=== PATIENT | female | born 1990 | race Caucasian/White ===

== ENCOUNTER 2021-01-10 02:30 | Outpatient (CLI) | payer MEDICAID, SELFPAY ==
[2021-01-10 12:10] LABS: Abs Immature Grans 0.03 10^3/uL (0.0-0.06); Absolute Basophil Count 0.04 10^3/uL (0.0-0.2); Absolute Eosinophil Count 0.13 10^3/uL (0.0-0.7); Absolute Lymphocyte Count 1.84 10^3/uL (1.2-3.4); Absolute Monocyte Count 0.52 10^3/uL (0.1-0.8); Absolute Neutrophil Count 4.76 10^3/uL (1.2-6.7); Basophils % 0.5; Eosinophils % 1.8; HCT 34.7 % (36.0-46.0); Immature Grans % 0.4; Lymphocytes % 25.1; MCH 29.4 pg (27.0-33.0); MCHC 34.6 % (32.0-36.0); MPV 9.4 fL (8.0-11.0); Monocytes % 7.1; Neutrophils % 65.1; Nucleated RBC 0 %; Platelet Count 243 10^3/uL (130-400); RBC 4.08 10^6/uL (3.93-5.22); RDW 11.9 % (11.7-14.6); RDW-SD 36.8 fL; WBC 7.32 10^3/uL (4.4-10.8)
[2021-01-10 12:24] LABS: Glucose,1 Hr (Glucola) 125 mg/dL (80-140)
[2021-01-10 12:37] LABS: Kit/Specimen SENT
[2021-01-10 12:43] LABS: *AMPHETAMINES SCREEN URINE Negative (Negative); *BARBITURATES SCREEN URINE Negative (Negative); *BENZODIAZEPINES SCREEN URINE Negative (Negative); Cannabinoids THC Negative (Negative); Cocaine Screen,Urine Negative (Negative); METHADONE URINE SCREEN Negative (Negative); OPIATES URINE SCREEN Negative (Negative)
[2021-01-10 12:44] LABS: Tricyclic Antidepressants Negative (Negative)
[2021-01-10 13:13] LABS: TSH (W/Ref FT4) 1.07 uIU/mL (0.36-3.74)
[2021-01-13 10:01] LABS: Hepatitis B Surface Ag Negative (Negative)
[2021-01-13 10:35] LABS: HIV-1/2 Ag & Ab Screen Negative (Negative)
[2021-01-13 10:40] LABS: Hepatitis C Ab w Rflx HCV PCR Negative (Negative)
[2021-01-13 11:47] LABS: Varicella IgG Antibody Positive (See Note)
[2021-01-13 11:53] LABS: Rubella IgG Ab (UVM) Positive (See Note)
[2021-01-13 14:12] LABS: Syphilis Total Ab w/Reflex Nonreactive (Nonreactive)
[2021-01-13 14:59] LABS: Chlamydia Result Negative (Negative); GC Result Negative (Negative)
[2021-01-18 10:38] LABS: Buprenorphine Negative ng/mL (Cutoff: 5.0); Norbuprenorphine Negative ng/mL (Cutoff: 2.5)
== END 2021-01-10 02:31 | disposition home or self-care (01) ==
LOC: LBO 02:30
PROVIDERS: Advanced Practice Midwife; PCP Registered Nurse; Visit Provider Advanced Practice Midwife
DX: Z34.91 Encounter for supervision of normal pregnancy, unspecified, first trimester (principal); R00.2 Palpitations; Z11.3 Encounter for screening for infections with a predominantly sexual mode of transmission; Z11.4 Encounter for screening for human immunodeficiency virus [HIV]; Z11.59 Encounter for screening for other viral diseases; Z01.84 Encounter for antibody response examination; Z3A.11 11 weeks gestation of pregnancy
CPT/HCPCS: 80307; 82950; 86787; 86803; 86850; 86900; 86901; 87340; 87389; 87491; 87591; 84443; 85025; 86762; 86780; 87086; 87480; 87510; 87660

== ENCOUNTER 2021-03-11 01:35 | Outpatient (CLI) | payer MEDICAID, SELFPAY ==
--- NOTE | 2021-03-11 06:30 | DI.US_ITS ---
Exam(s) US OB 2-3 TRIMESTER W MOD EXAM: US OB 2-3 TRIMESTER W MOD CLINICAL HISTORY: anatomy,z34.90. TECHNIQUE: Transabdominal obstetrical ultrasound performed. COMPARISON: No exams were available for comparison FINDINGS: Transabdominal obstetrical ultrasound performed. FINDINGS: Number of fetuses: One. position: Varied throughout the examination. heart rate: 144 bpm. Placental location: Posterior and fundal. There is a grade 0 placenta. No evidence of previa. Amniotic fluid index: Amount of fluid is within normal limits. ANATOMICAL SURVEY: Within normal limits. The right ventricular outflow tract could not be image d on this examination due to the lie of the fetus. The patient is scheduled to return on 03/18/2021 to document the right ventricular outflow tract. BIOMETRIC DATA: BPD: 4.6cm consistent with 19 weeks 6 days. HC: 17.8cm consistent with 20 weeks 2 days. AC: 16.2cm consistent with 21 weeks 2 days. FL: 3.3cm consistent with 20 weeks 1 day. Cisterna Magna: 5 mm Cerebellum: 2.1 cm EFW: 371 grms 88% Composite Age: 20 weeks 3 days EDC by US: 07/26/2021 Heart Rate: 144BPM IMPRESSION: 1. Single live intrauterine gestation as above. 2. The right ventricular outflow tract could not be imaged on the current examination due to the lie of the fetus. The patient is scheduled to return on 03/18/2021 to document the right ventricular out flow tract. The anatomic evaluation was otherwise unremarkable. DATA REPOSITORY:
== END 2021-03-11 01:55 ==
PROVIDERS: PCP Registered Nurse; Visit Provider Advanced Practice Midwife
DX: Z34.92 Encounter for supervision of normal pregnancy, unspecified, second trimester (principal); Z3A.20 20 weeks gestation of pregnancy
CPT/HCPCS: 76805

== ENCOUNTER 2021-03-18 00:39 | Outpatient (CLI) | payer MEDICAID, SELFPAY ==
--- NOTE | 2021-03-18 | DI.US_ITS ---
Exam(s) US OB F/U FACIAL/LVOT/RVOT EXAM: US OB F/U FACIAL/LVOT/RVOT CLINICAL HISTORY: F/U RVOT TO COMPLETE SURVEY. COMPARISON: US US OB 2-3 TRIMESTER W MOD from 03/11/2021 US US OB 2-3 TRIMESTER W MOD from 03/11/2021 TECHNIQUE: Transabdominal obstetrical ultrasound performed. FINDINGS: Patient returned for better visualization of the right ventricular outflow tract is not well seen on the prior exam. Sonographic images demonstrate a single intrauterine gestation in variable position. Placenta: Posterior grade 1 Predicted gestational age: 20 weeks 6 days Estimated date of delivery 30 July 2021: heart rate motion is Dopplered at: 141 BPM. Amniotic fluid: Amount of fluid is within normal limits. Right ventricular outflow tract was identified on the examination. IMPRESSION: Right ventricular outflow tract was visualized. DATA REPOSITORY:
== END 2021-03-18 00:59 ==
PROVIDERS: PCP Registered Nurse; Visit Provider Advanced Practice Midwife
DX: Z34.92 Encounter for supervision of normal pregnancy, unspecified, second trimester (principal)
CPT/HCPCS: 76815

== ENCOUNTER 2021-04-15 08:45 | Outpatient (CLI) | payer OTHER, MEDICAID, SELFPAY ==
--- NOTE | 2021-04-15 08:45 | RT.EKG_ITS ---
APPROVED REPORT Exam: Resting ECG Reason for Exam: palpitations Patient Location: O HR:82 bpm ECG Measurements Heart Rate 82 AXIS [place] 133 P 17 QRSd 89 QRS 17 QT 359 T 4 QTc 420 Conclusion Sinus rhythm...normal P axis, V-rate 50- 99 Low voltage, precordial leads...precordial leads <1.0mV Otherwise normal
== END 2021-04-15 08:46 | disposition home or self-care (01) ==
LOC: DI.CARD 08:47
PROVIDERS: PCP Registered Nurse; Visit Provider Internal Medicine Cardiovascular Disease
DX: R00.2 Palpitations (principal)
CPT/HCPCS: 93010

== ENCOUNTER 2021-05-15 03:28 | Outpatient (CLI) | payer MEDICAID, SELFPAY ==
[2021-05-15 10:59] LABS: HCT 33.9 % (36.0-46.0); MCH 28.9 pg (27.0-33.0); MCHC 32.4 % (32.0-36.0); MCV 89.2 fL (80-95); MPV 9.1 fL (8.0-11.0); Platelet Count 210 10^3/uL (130-400); RDW 12.8 % (11.7-14.6); WBC 11.09 10^3/uL (4.4-10.8)
[2021-05-15 11:08] LABS: Glucose,1 Hr (Glucola) 175 mg/dL (80-140)
== END 2021-05-15 03:29 | disposition home or self-care (01) ==
LOC: LBO 03:29
PROVIDERS: Advanced Practice Midwife; PCP Registered Nurse; Visit Provider Advanced Practice Midwife
DX: Z34.93 Encounter for supervision of normal pregnancy, unspecified, third trimester (principal); Z3A.29 29 weeks gestation of pregnancy
CPT/HCPCS: 36415; 82950; 85027

== ENCOUNTER 2021-06-10 02:28 | Outpatient (CLI) | payer OTHER, MEDICAID, SELFPAY ==
[2021-06-10 09:26] LABS: Glucose 1 Hour 162 mg/dL
[2021-06-10 11:12] LABS: Glucose 3 Hour 136 mg/dL
--- NOTE | 2021-06-17 09:25 | W.ANESCON ---
General Date of Service Date of Service: 06/17/21 Reason for Consult Requesting Provider: Aimee Orellana How Consult Conducted:: Chart Review Reason for Consult:: TOLAC Consult Recommendation after Review:: Chart reviewed, cardiac note reviewed with no further concerns, recent COVID+ treated with MAB on 05/31/21. Previous was an induction with resultant c section due to arrest of descent. OK to proceed with TOLAC at [facility]. Meds Allergies and Home Medications Allergies Allergy/AdvReac Type Severity Reaction Status Date / Time grass pollen-perennial rye, Allergy Intermediate wheezing, Verified 05/15/21 10:02 standar sneezing, runny nose cat dander Allergy Mild runny Verified 05/15/21 10:02 nose, itchy eyes mold Allergy Mild sneezing, Verified 05/15/21 10:02 stuffy nose ondansetron AdvReac Severe severe Verified 05/15/21 10:02 headache Home Medication Medication Instructions Recorded albuterol sulfate 90 mcg/actuation 2 puff INHALATION Q6H PRN 12/23/20 aerosol inhaler prenat.vits,jody,plb-rzqz-dmoew 1 tab PO DAILY 12/23/20 PFS Active Problems Active Problems: Problem Status Onset Code Elevated glucose R73.09 Size of fetus inconsistent with dates in third trimester O26.843 Fatigue R53.83 Desires vaginal after trial O34.219 Z34.90 Anxiety F41.9 Medical History Medical History (Updated 06/03/21 @ 10:37 by Vernell Cain MD) Asthma never intubated Breast abscess of female left breast related to mastitis Heart palpitations Migraine Shortness of breath at rest Surgical History Surgical History History of appendectomy History of incision and drainage Previous section Tobacco Smoking/Tobacco Use Status: Never Second hand exposure: No Alcohol Alcohol Intake: never Substance Use Substance use: Never Prental History History 2 Para 1 Hx # Term Pregnancies 1 Multiple births 0 Hx # Pregnancies 0 Ectopic pregnancies 0 AB induced 0 Hx Number of Living Children 1 AB spontaneous 0 Past Pregnancies Del. Date GA/Weeks # Outcome Route Wgt Sex Labor Lgth Anesthesia Location Prov Complic 07/10/16 41 No Successful 3742.137 g Female 23 hr regional Delivery Date: 07/10/16 delivererd at [facility], fully and pushing after induction Aimee Cook Vital Signs & Lab Results Point of Care Results Nursing Point of Care Results: No Data to Display Lab Results Blood Type / Crossmatch: No Data to Display Complete Blood Count: No Data to Display Complete Metabolic Panel: No Data to Display Liver Function Panel: No Data to Display Coagulation Panel: No Data to Display Cardiac Panel: No Data to Display Arterial Blood Gas: No Data to Display Venous Blood Gas: No Data to Display Pancreas Panel: No Data to Display Thyroid Panel: No Data to Display Infectious Disease: No Data to Display Blood Cultures: No Data to Display Toxicology Panel: No Data to Display Panel: No Data to Display
== END 2021-06-10 02:29 | disposition home or self-care (01) ==
LOC: LBO 02:28
PROVIDERS: Advanced Practice Midwife; PCP Registered Nurse; Visit Provider Obstetrics & Gynecology
DX: R73.09 Other abnormal glucose (principal)
CPT/HCPCS: 36415; 82951

== ENCOUNTER 2021-06-17 03:06 | Outpatient (CLI) | payer OTHER, MEDICAID, SELFPAY ==
--- NOTE | 2021-06-17 07:30 | DI.US_ITS ---
Exam(s) US OB HONG WEIGHT EXAM: US OB HONG WEIGHT CLINICAL HISTORY: S>D,o26.843. TECHNIQUE: Transabdominal obstetrical ultrasound performed. COMPARISON: US US OB F/U FACIAL/LVOT/RVOT from 03/18/2021 FINDINGS: Transabdominal obstetrical ultrasound performed. FINDINGS: Number of fetuses: One. position: Cephalic. Placental location: There is a grade 1 posterior placenta. No evidence of previa. BIOMETRIC DATA: BPD: 92 mm = 37 weeks 4 days. HC: 329 mm = 37 weeks 3 days. AC: 326 mm = 36 weeks 3 days. FL: 69 mm = 35 weeks 4 days. EFW: 2946 grms 34% Composite Age: 36 weeks 5 days EDC: 07/10/2021 Heart Rate: 126BPM Amniotic fluid index: 14.9 cm. Visually, amount of fluid is within normal limits. IMPRESSION: 1. Single live intrauterine gestation as above. 2. Estimated weight is 2946gms. 3. Amniotic fluid index is 14.9 cm. Visually within normal limits. DATA REPOSITORY:
== END 2021-06-17 03:26 ==
PROVIDERS: PCP Registered Nurse; Visit Provider Advanced Practice Midwife
DX: O26.843 Uterine size-date discrepancy, third trimester (principal); Z3A.37 37 weeks gestation of pregnancy
CPT/HCPCS: 76816

== ENCOUNTER 2021-07-08 10:09 | Outpatient (CLI) | payer OTHER, MEDICAID, SELFPAY ==
[2021-07-08 10:19] VITALS: BP 109/63; PULSE 95; TEMP 36.5
[2021-07-08 10:34] VITALS: BP 109/63; PULSE 95
[2021-07-08 11:18] VITALS: BP 109/63; PULSE 95; TEMP 36.5
--- NOTE | 2021-07-08 11:18 | W.OBNST ---
Date of service: 07/08/21 Time of Service: 11:18 NST Evaluation Reason for NST Reasons for Nonstress Test: OTHER, SEE COMMENT Reason for NST Other: post covid Gestational Age Gestational Age in Weeks and Days: 36 Weeks and 6Days Test and Monitor Explained Test/Monitor Explained: Test Explained, Monitor Explained and Patient Verbalized Understanding Vital Signs Blood Pressure: 109/63 Pulse: 95 Temperature: 97.7 F NST Information Date on Monitor: 07/08/21 Time on Monitor: 10:10 Date off Monitor: 07/08/21 Time off Monitor: 10:49 Total Time on Monitor: 39 NST Interventions: PO Hydration NST Evaluation Patient States Movement: Present FHR Baseline: 130 Variability: Moderate 6-25 bpm Accelerations: 15x15 Decelerations: None NST Results: Reactive Note NST Note NST Reviewed and Verified by: Sanaz Langley
== END 2021-07-08 10:55 | disposition home or self-care (01) ==
LOC: BCD 10:12 → OBS 10:18
PROVIDERS: PCP Registered Nurse; Visit Provider Advanced Practice Midwife
DX: O98.513 Other viral diseases complicating pregnancy, third trimester (principal); Z86.16 Personal history of COVID-19; Z3A.36 36 weeks gestation of pregnancy
CPT/HCPCS: 59025

== ENCOUNTER 2021-07-08 17:25 | Outpatient (REF) | payer OTHER, MEDICAID, SELFPAY ==
[2021-07-08 21:45] LABS: *AMPHETAMINES SCREEN URINE Negative (Negative); *BARBITURATES SCREEN URINE Negative (Negative); *BENZODIAZEPINES SCREEN URINE Negative (Negative); Cannabinoids THC Negative (Negative); Cocaine Screen,Urine Negative (Negative); METHADONE URINE SCREEN Negative (Negative); OPIATES URINE SCREEN Negative (Negative)
[2021-07-08 21:46] LABS: Tricyclic Antidepressants Negative (Negative)
[2021-07-12 13:51] LABS: Buprenorphine Negative ng/mL (Cutoff: 5.0)
== END 2021-07-08 17:26 | disposition home or self-care (01) ==
LOC: LBN 17:25
PROVIDERS: PCP Registered Nurse; Visit Provider Advanced Practice Midwife
DX: Z34.93 Encounter for supervision of normal pregnancy, unspecified, third trimester (principal); Z3A.37 37 weeks gestation of pregnancy; Z36.85 Encounter for antenatal screening for Streptococcus B
CPT/HCPCS: 80307; 87081

== ENCOUNTER 2021-07-12 09:57 | Outpatient (CLI) | payer OTHER, MEDICAID, SELFPAY ==
[2021-07-12 10:11] VITALS: BP 104/59; PULSE 89
[2021-07-12 10:14] VITALS: BP 104/59; PULSE 89; TEMP 36.4
--- NOTE | 2021-07-12 10:29 | W.OBNST ---
Date of service: 07/12/21 Time of Service: 10:29 NST Evaluation Reason for NST Reasons for Nonstress Test: OTHER, SEE COMMENT Reason for NST Other: Hx COVID + Gestational Age Gestational Age in Weeks and Days: 37 Weeks and 3Days Test and Monitor Explained Test/Monitor Explained: Test Explained, Monitor Explained and Patient Verbalized Understanding Vital Signs Blood Pressure: 104/59 Pulse: 89 Temperature: 97.5 F NST Information Date on Monitor: 07/12/21 Time on Monitor: 10:03 Date off Monitor: 07/12/21 Time off Monitor: 10 Total Time on Monitor: 20 NST Interventions: None NST Evaluation Patient States Movement: Present FHR Baseline: 135 Variability: Moderate 6-25 bpm Accelerations: 15x15 Decelerations: None NST Results: Reactive Note NST Note Note: NST done today due to patient having had COVID during . NST is reactive and reassuring and she will continue with routine care and twice weekly NST's. NST Reviewed and Verified by: Aimee Coko
[2021-07-12 10:30] VITALS: BP 104/59; PULSE 89; TEMP 36.4
== END 2021-07-12 10:31 ==
LOC: BCD 09:59 → OBS 10:08
PROVIDERS: PCP Registered Nurse; Visit Provider Advanced Practice Midwife
DX: O98.513 Other viral diseases complicating pregnancy, third trimester (principal); Z86.16 Personal history of COVID-19; Z3A.37 37 weeks gestation of pregnancy
CPT/HCPCS: 59025

== ENCOUNTER 2021-07-15 07:49 | Outpatient (CLI) | payer OTHER, MEDICAID, SELFPAY ==
[2021-07-15 10:12] VITALS: BP 113/62; PULSE 91; TEMP 36.6
[2021-07-15 10:14] VITALS: BP 113/62; PULSE 91
--- NOTE | 2021-07-15 10:57 | W.OBNST ---
Date of service: 07/15/21 Time of Service: 10:35 NST Evaluation Reason for NST Reasons for Nonstress Test: OTHER, SEE COMMENT Reason for NST Other: hx COVID Gestational Age Gestational Age in Weeks and Days: 37 Weeks and 6Days Test and Monitor Explained Test/Monitor Explained: Test Explained and Monitor Explained Vital Signs Blood Pressure: 113/62 Pulse: 91 Temperature: 97.8 F NST Information Date on Monitor: 07/15/21 Time on Monitor: 10:07 Date off Monitor: 07/15/21 Time off Monitor: 10:29 Total Time on Monitor: 22 NST Interventions: PO Hydration NST Evaluation Patient States Movement: Present FHR Baseline: 135 Variability: Moderate 6-25 bpm Accelerations: 15x15 Decelerations: None NST Results: Reactive Note NST Note Note: NST due to COVID in is reactive and reassuring. Patient has visit after this. Will return for NST on Wednesday. NST Reviewed and Verified by: Aimee Cook
[2021-07-15 10:58] VITALS: BP 113/62; PULSE 91; TEMP 36.6
== END 2021-07-15 10:35 | disposition home or self-care (01) ==
LOC: BCD 07:52 → OBS 10:10
PROVIDERS: PCP Registered Nurse; Visit Provider Advanced Practice Midwife
DX: O98.513 Other viral diseases complicating pregnancy, third trimester (principal); Z86.16 Personal history of COVID-19; Z3A.37 37 weeks gestation of pregnancy
CPT/HCPCS: 59025

== ENCOUNTER 2021-07-19 08:02 | Outpatient (CLI) | payer OTHER, MEDICAID, SELFPAY ==
[2021-07-19 10:14] VITALS: BP 95/62; PULSE 78; TEMP 36.7
[2021-07-19 10:21] VITALS: BP 95/62; PULSE 78
[2021-07-23 13:09] VITALS: BP 95/62; PULSE 78; TEMP 36.7
--- NOTE | 2021-07-23 13:09 | W.OBNST ---
Date of service: 07/19/21 Time of Service: 11:00 NST Evaluation Reason for NST Reasons for Nonstress Test: OTHER, SEE COMMENT Reason for NST Other: Hx of covid. Gestational Age Gestational Age in Weeks and Days: 38 Weeks and 6Days Test and Monitor Explained Test/Monitor Explained: Test Explained, Monitor Explained and Patient Verbalized Understanding Vital Signs Blood Pressure: 95/62 Pulse: 78 Temperature: 98.1 F Urine Results Urine Protein: Negative Urine Ketones: Positive Urine Glucose: Negative Urine Blood: Negative NST Information Date on Monitor: 07/19/21 Time on Monitor: 10:13 Date off Monitor: 07/19/21 Time off Monitor: 10:34 Total Time on Monitor: 21 NST Interventions: PO Hydration and Other NST Evaluation Patient States Movement: Present FHR Baseline: 135 Variability: Moderate 6-25 bpm Accelerations: 15x15 Decelerations: None NST Results: Reactive Note NST Note NST Reviewed and Verified by: Sanaz Langley
== END 2021-07-19 10:45 | disposition home or self-care (01) ==
LOC: BCD 08:04 → OBS 10:09
PROVIDERS: PCP Registered Nurse; Visit Provider Advanced Practice Midwife
DX: O98.513 Other viral diseases complicating pregnancy, third trimester (principal); Z86.16 Personal history of COVID-19; Z3A.38 38 weeks gestation of pregnancy
CPT/HCPCS: 59025

== ENCOUNTER 2021-07-22 08:56 | Outpatient (CLI) | payer OTHER, MEDICAID, SELFPAY ==
[2021-07-22 09:47] VITALS: BP 107/67; PULSE 97; TEMP 36.4
[2021-07-22 10:28] VITALS: BP 107/67; PULSE 97; TEMP 36.4
--- NOTE | 2021-07-22 10:49 | W.OBNST ---
Date of service: 07/22/21 Time of Service: 10:51 NST Evaluation Reason for NST Reasons for Nonstress Test: OTHER, SEE COMMENT Reason for NST Other: Covid Gestational Age Gestational Age in Weeks and Days: 38 Weeks and 6Days Test and Monitor Explained Test/Monitor Explained: Test Explained, Monitor Explained and Patient Verbalized Understanding Vital Signs Blood Pressure: 107/67 Pulse: 97 Temperature: 97.5 F Urine Results Urine Protein: Negative Urine Ketones: Negative Urine Glucose: Negative Urine Blood: Negative NST Information Date on Monitor: 07/22/21 Time on Monitor: 09:51 Date off Monitor: 07/22/21 Time off Monitor: 10:13 Total Time on Monitor: 22 NST Interventions: PO Hydration Contraction Frequency: 0 NST Evaluation Patient States Movement: Present FHR Baseline: 145 Variability: Moderate 6-25 bpm Accelerations: 15x15 Decelerations: None NST Results: Reactive Note NST Note Note: Kvng is here for NST due to covid-19 infection during . She is coming in 2 x weekly. She requested a SVE today. Cervix is 1.5 cms/ post. soft. Vertex at -2. Returning tomorrow for visit with MD for pre-op scheduling. Repeat NST scheduled in 4 days. NST Reviewed and Verified by: Aimee Orellana
[2021-07-22 10:51] VITALS: BP 107/67; PULSE 97; TEMP 36.4
== END 2021-07-22 10:30 | disposition home or self-care (01) ==
LOC: BCD 08:58 → OBS 09:39
PROVIDERS: PCP Registered Nurse; Visit Provider Advanced Practice Midwife
DX: O98.513 Other viral diseases complicating pregnancy, third trimester (principal); Z86.16 Personal history of COVID-19; Z3A.38 38 weeks gestation of pregnancy
CPT/HCPCS: 59025

== ENCOUNTER 2021-07-26 08:51 | Outpatient (CLI) | payer OTHER, MEDICAID, SELFPAY ==
[2021-07-26 10:19] VITALS: BP 106/60; PULSE 78; TEMP 36.5
[2021-07-26 10:24] VITALS: BP 106/60; PULSE 78
[2021-07-26 14:24] VITALS: BP 106/60; PULSE 78; TEMP 36.5
--- NOTE | 2021-07-26 14:24 | W.OBNST ---
Date of service: 07/26/21 Time of Service: 14:24 NST Evaluation Reason for NST Reasons for Nonstress Test: OTHER, SEE COMMENT Reason for NST Other: HX of COVID Gestational Age Gestational Age in Weeks and Days: 39 Weeks and 3Days Test and Monitor Explained Test/Monitor Explained: Test Explained and Monitor Explained Vital Signs Blood Pressure: 106/60 Pulse: 78 Temperature: 97.7 F Urine Results Urine Protein: Negative Urine Ketones: Positive Urine Glucose: Negative Urine Blood: Negative NST Information Date on Monitor: 07/26/21 Time on Monitor: 10:19 Date off Monitor: 07/26/21 Time off Monitor: 10:44 Total Time on Monitor: 25 NST Interventions: PO Hydration NST Evaluation Patient States Movement: Present FHR Baseline: 135 Variability: Moderate 6-25 bpm Accelerations: 15x15 Decelerations: None NST Results: Reactive Note NST Note NST Reviewed and Verified by: Sanaz Langley
== END 2021-07-26 11:00 | disposition home or self-care (01) ==
LOC: BCD 08:53 → OBS 10:12
PROVIDERS: PCP Registered Nurse; Visit Provider Advanced Practice Midwife
DX: O09.893 Supervision of other high risk pregnancies, third trimester (principal); Z86.16 Personal history of COVID-19; Z3A.39 39 weeks gestation of pregnancy
CPT/HCPCS: 59025

== ENCOUNTER 2021-07-29 07:37 | Outpatient (CLI) | payer OTHER, MEDICAID, SELFPAY ==
[2021-07-29 11:36] VITALS: BP 109/64; PULSE 85; TEMP 37
[2021-07-29 11:59] VITALS: BP 109/64; PULSE 85
--- NOTE | 2021-07-29 12:11 | W.OBNST ---
Date of service: 07/29/21 Time of Service: 12:13 NST Evaluation Reason for NST Reasons for Nonstress Test: OTHER, SEE COMMENT Reason for NST Other: post covid Gestational Age Gestational Age in Weeks and Days: 39 Weeks and 6Days Test and Monitor Explained Test/Monitor Explained: Test Explained, Monitor Explained and Patient Verbalized Understanding Vital Signs Blood Pressure: 109/64 Pulse: 85 Temperature: 98.6 F NST Information Date on Monitor: 07/29/21 Time on Monitor: 11:37 Date off Monitor: 07/29/21 Time off Monitor: 12:05 Total Time on Monitor: 28 NST Interventions: Reposition Patient NST Evaluation Patient States Movement: Present FHR Baseline: 140 Variability: Moderate 6-25 bpm Accelerations: 15x15 Decelerations: None Note NST Note Note: NST today due to covid infection. She was also seen by Dr Mukherjee who discussed repeat if no spontaneous labor. Kvng is having irregular contractions. She requested an exam. cervix 1/20%/-2/ soft/ posterior. RTO for twice weekly NST NST Reviewed and Verified by: Aimee Orellana
[2021-07-29 12:13] VITALS: BP 109/64; PULSE 85; TEMP 37
== END 2021-07-29 12:14 | disposition home or self-care (01) ==
LOC: BCD 07:47 → OBS 11:34
PROVIDERS: PCP Registered Nurse; Visit Provider Advanced Practice Midwife
DX: O09.893 Supervision of other high risk pregnancies, third trimester (principal); Z86.16 Personal history of COVID-19; Z3A.39 39 weeks gestation of pregnancy
CPT/HCPCS: 59025

== ENCOUNTER 2021-08-05 01:35 | Outpatient (CLI) | payer OTHER, MEDICAID, SELFPAY ==
[2021-08-05 09:06] LABS: Abs Immature Grans 0.31 10^3/uL (0.0-0.06); Absolute Basophil Count 0.07 10^3/uL (0.0-0.2); Absolute Eosinophil Count 0.19 10^3/uL (0.0-0.7); Absolute Lymphocyte Count 1.89 10^3/uL (1.2-3.4); Basophils % 0.6; Eosinophils % 1.7; HCT 33.9 % (36.0-46.0); HGB 11.1 g/dL (11.2-15.7); Immature Grans % 2.8; Lymphocytes % 17.2; MCH 27.4 pg (27.0-33.0); MCHC 32.7 % (32.0-36.0); MCV 83.7 fL (80-95); MPV 9.8 fL (8.0-11.0); Monocytes % 6.4; Neutrophils % 71.3; Nucleated RBC 0 %; Platelet Count 217 10^3/uL (130-400); RBC 4.05 10^6/uL (3.93-5.22); RDW 13.7 % (11.7-14.6); RDW-SD 41.4 fL; WBC 10.96 10^3/uL (4.4-10.8)
[2021-08-05 09:08] LABS: Absolute Neutrophil Count 7.81 10^3/uL (1.2-6.7)
[2021-08-05 10:22] LABS: Source Nasal/Nares
[2021-08-05 17:13] LABS: COVID-19 PCR Negative (Negative)
== END 2021-08-05 01:36 | disposition home or self-care (01) ==
LOC: LBO 01:36
PROVIDERS: PCP Registered Nurse; Visit Provider Obstetrics & Gynecology
DX: O34.211 Maternal care for low transverse scar from previous cesarean delivery (principal); Z3A.41 41 weeks gestation of pregnancy; Z20.822 Contact with and (suspected) exposure to COVID-19; Z01.818 Encounter for other preprocedural examination; Z01.812 Encounter for preprocedural laboratory examination
CPT/HCPCS: 36415; 86850; 86900; 86901; 87635; 85025

== ENCOUNTER 2021-08-05 19:00 | Outpatient (REF) | payer OTHER, MEDICAID, SELFPAY | END 2021-08-05 19:01 | disposition home or self-care (01) | LOC: LBN 19:00 | PROVIDERS: PCP Registered Nurse; Visit Provider Obstetrics & Gynecology ==

== ENCOUNTER 2021-08-06 05:37 | Inpatient (IN) | payer OTHER, MEDICAID, SELFPAY ==
[2021-08-06] VITALS (232 sets, daily range): BP systolic 86–125; BP diastolic 48–71; PULSE 65–136; RESP 12–22; TEMP 36.3–36.9; O2SAT 94–100; BMI 33.2
--- NOTE | 2021-08-06 05:40 | W.PM.OBHPL1 ---
Date of service: 08/06/21 Time of Service: 05:40 Assessment and Plan Assessment and plan (1) Desires vaginal after trial: Status: Acute Assessment and plan: 1. Will admit as patient is scheduled for possible AROM induction today with plan to move to repeat C/S if active labor does not occur. 2. Dr. Cain notitied of patient's arrival and current status, not in active labor. 3. OB nursing will notify Nursing pigment making supervisor that patient is here at [facility] but not in active labor 4. Expectant management with labor support. (2) 41 weeks gestation of : Status: Acute Assessment and plan: 1. Will use continuous Novii EFM to allow for independent movement and continuous EFM 2. IV hydration as patient is to be NPO except sips of clear liquids due to possible C/S OB-HPI Labor/Delivery History of Present Illness Reason for Visit: Rule out labor Chief Complaint: Uterine Contractions; Other (desires TOLAC). MARTINA Calculator Estimated Delivery Date Method Current Current Estimate 07/30/21 LMP (Certain) 41w 0d Other Estimates 07/30/21 Ultrasound #1 41w 0d Comments: Kvng reports contractions began at 0230 every 5 minutes and are more uncomfortable than they have been recently. She was seen by Dr. Cain yesterday and had VE with membrane stripping, at that time she was 3cm. Kvng denies ROM or bloody show and states baby has been active. She had a plan to present today at 1000 for admission for possible AROM to allow for trial of labor and if she did not labor she was planning to move forward with repeat section. Kvng had labs and COVID screening done yesterday in preparation for today. She desires continued observation and to still move forward with plan that was put in place yesterday, knowing that we cannot augment her current contractions until OR / Anesthesia and OB Physician are available to her which is planned for 1000. She understands that we will support her own contractions as they are at this time. Denies questions. KIANNA History of Present Expected Delivery Route/Plan hopes for - CNM FOB/fiance - Russ Cordova (2nd child together) BB no circ GBS neg Russ (or his sister Katie if he's away) & vKng's mother, Mayte for support. Would like to try the tub if possible. Does not plan IOL at [facility] if postdate, will opt for repeat C/S instead Specific Issues/Plan 1. Prev LTC/S 4 yrs ago in [place], interested in TOLAC 1a. review records/op note. Double uterine closure confirmed, OP note on pg's 80-81 scanned records 1b. MD appt at 30 wks for consent process: done via telehealth visit 06/03/21 2. BMI 32, early glucola: 125 3. Asthma, using inhalers 4. [place] result: low prob x3, male fetus 5. Inadequate heart views on anatomy scan- rescheduled for additional views-completed and WNL 6. Referral to cardiology due to fatigue, dizziness, palpitations and shortness of breath at rest. 6a. EKG showed sinus rhythm. No additional monitoring indicated. 7. Both Kvng and Russ have received the Covid vaccine, they both decline the booster 8. 29 wk glucola @ 175; 3 hr GTT- will try to schedule 06/10 9a. 3 hr, 86/162/161/136 9. COVID + 05/31/21 associated with tachycardia. ED visit 05/31/21. Recieved MAB at [facility] 10a. US for growth 06/17, 2946 G, 34% nl HONG 14.9 10b. testing at 36 weeks - starting 07/08. Assessment: History Reviewed & Current Informed Consent Informed Consent: Risk,Benefits,Alternatives Discussed and Vaginal after (patient verbalizes she wants to continue with attempted . KIANNA) Review of Systems All systems reviewed & are unremarkable except as noted in HPI and below PFSH All Active Problems (Updated 08/06/21 @ 05:49 by Aimee Cook CNM) 41 weeks gestation of (Acute) Elevated glucose (Acute) Size of fetus inconsistent with dates in third trimester (Acute) Fatigue (Acute) Desires vaginal after trial (Acute) (Acute) Anxiety (Chronic) Medical History Asthma never intubated Breast abscess of female left breast related to mastitis Heart palpitations Migraine Shortness of breath at rest Surgical History History of appendectomy History of incision and drainage Previous section Family History Father Asthma Diabetes type II Hyperlipidemia Hypertension Self Asthma Paternal Uncle Cancer age 52 from colon cancer Mother Depression Diabetes Brother Autism Social History Smoking/Tobacco Use Status: Never Second Hand Exposure: No Smoking risk assessment performed?: Yes Alcohol Intake: never Drug use: Never Substance use type: does not use 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 Date GA/Weeks # Outcome Route Wgt Sex Labor Lgth Anesthesia Location Prov Complic 07/10/16 41 No Successful 8 lb 4 oz Female 23 hr regional Delivery Date: 07/10/16 Last Updated by: Aimee Cook CNM delivererd at [facility], fully and pushing after induction Meds Allergies and Home Medications Allergies Allergy/AdvReac Type Severity Reaction Status Date / Time grass pollen-perennial rye, Allergy Intermediate wheezing, Verified 08/06/21 05:48 standar sneezing, runny nose cat dander Allergy Mild runny Verified 08/06/21 05:48 nose, itchy eyes mold Allergy Mild sneezing, Verified 08/06/21 05:48 stuffy nose ondansetron AdvReac Severe severe Verified 08/06/21 05:48 headache Home Medications Medication Instructions Recorded Confirmed Type albuterol sulfate 90 mcg/actuation 2 puff INHALATION Q6H PRN 12/23/20 08/06/21 History aerosol inhaler prenat.vits,jody,giz-ldrd-vnygb 1 tab PO DAILY 12/23/20 08/06/21 History Exam Physical Exam Vital signs: Pulse BP 78 99/58 L 08/06/21 05:30 08/06/21 05:30 Vital Signs Reviewed: Yes Constitutional Constitutional: mild distress (uterine contractions are uncomfortable, she is working well with them. KH) Detailed Labor and Delivery Exam Dilation: 3 Effacement (%): 50 station: -3 Cervix position: posterior Consistency: soft Hernandez Score: Cervical Points Exam 0 1 2 3 Dilation Closed 1-2cm 3-4 cm 5-6cm Effacement 0-30% 40-50% 60-70% 80% Consistency Firm Medium Soft Station -3 -2 -1,0 +1,+2 Position Posterior Mid Anterior HERNANDEZ Score(Cervical Ripeness Score): 5 Amniotic Membrane Status: Intact Monitor Mode: External Contraction Frequency(min): irritability pattern noted with short duration frequent contractions Contraction Duration(sec): 30-60 Contraction Intensity: Mild/Moderate Fetus A Heart Rate Baseline: 120 Monitor Accelerations: 15 X 15 Monitor Decelerations: None Variability: Moderate (6-25 BPM) Categories: Category I Est. Weight: 8 lb 8 oz HEENT Exam HEENT Exam: Normal Neck Exam Neck Exam: Normal (visual inspection) Chest/Brest/Axilla Exam Chest Exam: Normal Respiratory Exam Respiratory Exam: Normal Cardiovascular Exam Cardiovascular Exam: Normal Abdominal Exam Abdominal Exam: Normal Exam Exam: Normal Extremities Exam Extremities Exam: Normal Back/Spine/Pelvis Exam Pelvis Adequate: Yes (pelvis feels adequate, head is not well engaged at 41 weeks gestation) Skin Exam Skin Exam: Normal Neurological Exam Neurological Exam: Normal Psychiatric Exam Psychiatric Exam: Normal Results Results Group Beta Strep: Negative Blood Type: A+ Rubella Status: Immune Varicella Immunity: Immune Lab Results: COVID negative 08/05/21. [place] NIPT low probability for trisomy 21/18/13 and male gender identified. Risk Assessment Risk for Shoulder Dystocia Historical/Initial OB: POSITIVE FOR: Pre- BMI>30; NEGATIVE FOR: Pelvic Abnormality, Previous Shoulder Dystocia or Previous Macrosomia Delivery Plan @ 36wks: spont labor for TOLAC Delivery Plan @ 40 wks: spontaneous labor by 41 weeks or will have repeat C/S. Early labor at 41 weeks occurred, will monitor for labor progression, some increased risk of shoulder dystocia due to history of being 10 cm and pushing without adequate descent leading to section in last . Risk for Pre-Eclampsia Date Initiated/Initials: not indicated Yes, if one or more: NEGATIVE FOR: Hx Pre-E/Gest HTN, Chronic HTN, Multiple Gestation, Pre-gestational DM, Renal Disease, Systemic Lupus or APA Syndrome Yes, if 2 or more: POSITIVE FOR: BMI>30; NEGATIVE FOR: Nulliparity, Age>= 35 yrs, >10yr btwn pregnancies, ethinicty, Mother/Sister w/ Pre-E or Previous IUGR Risk for Post- Hemorrhage Initial: NEGATIVE FOR: Multiple Gestation, Previous PPH, Known Clotting Deficiency, Grand Multiparity or Anticoagulation Date/Initials: 08/06/21: [facility]H Risks Reviewed Risks Reviewed Upon Admission: Yes
[2021-08-06] MEDS: Lactated Ringers 1,000 ML 500 ML IV ×2 (06:55→17:35)
--- NOTE | 2021-08-06 08:22 | W.ANESPRE ---
General Info Date of Service Date Performed: 08/06/21 Height: 5 ft 1 in Weight: 79.832 kg Body Mass Index (BMI): 33.2 Meds Allergies and Home Medications Allergies Allergy/AdvReac Type Severity Reaction Status Date / Time grass pollen-perennial rye, Allergy Intermediate wheezing, Verified 08/06/21 05:48 standar sneezing, runny nose cat dander Allergy Mild runny Verified 08/06/21 05:48 nose, itchy eyes mold Allergy Mild sneezing, Verified 08/06/21 05:48 stuffy nose ondansetron AdvReac Severe severe Verified 08/06/21 05:48 headache Home Medication Medication Instructions Recorded albuterol sulfate 90 mcg/actuation 2 puff INHALATION Q6H PRN 12/23/20 aerosol inhaler prenat.vits,jody,[id number] 1 tab PO DAILY 12/23/20 Current Visit Medications: Current Medications Generic Name Dose Route Start Last Admin Trade Name Freq PRN Reason Stop Dose Admin Ringer's Solution 1,000 mls @ 150 mls/hr 08/06/21 05:45 08/06/21 06:55 IV 500 mls/hr INFUSION ZACH Administration IV Miscellaneous Supplies 1 each 08/06/21 05:45 Iv Access IV DIRECTED ZACH Sodium Chloride 0 ml 08/06/21 05:37 Normal Saline Flush 10 Ml Syr IVP PRN PRN PFSH Active Problems Active Problems: Problem Status Onset Code 41 weeks gestation of Z3A.41 Elevated glucose R73.09 Size of fetus inconsistent with dates in third trimester O26.843 Fatigue R53.83 Desires vaginal after trial O34.219 Z34.90 Anxiety F41.9 Medical History Medical History Asthma never intubated Breast abscess of female left breast related to mastitis Heart palpitations Migraine Shortness of breath at rest Surgical History Surgical History History of appendectomy History of incision and drainage Previous section Tobacco Smoking/Tobacco Use Status: Never Second hand exposure: No Alcohol Alcohol Intake: never Substance Use Substance use: Never Substance use type: does not use Prental History History 2 Para 1 Hx # Term Pregnancies 1 Multiple births 0 Hx # Pregnancies 0 Ectopic pregnancies 0 AB induced 0 Hx Number of Living Children 1 AB spontaneous 0 Past Pregnancies Del. Date GA/Weeks # Outcome Route Wgt Sex Labor Lgth Anesthesia Location [facility] 07/10/16 41 No Successful 3742.137 g Female 23 hr regional Delivery Date: 07/10/16 Last Updated by: Aimee Cook CNM delivererd at [facility], fully and pushing after induction Vital Signs and Lab Results Vital Signs Most Recent Vital Signs in EMR: Most Recent Vital Signs Temp Pulse Resp BP 36.6 C 73 14 109/59 L 08/06/21 07:51 08/06/21 08:17 08/06/21 07:51 08/06/21 07:51 Lab Results Blood Type / Crossmatch: Patient ABO/Rh A Positive 08/05/21 Antibody Screen NEGATIVE 08/05/21 Complete Blood Count: White Blood Count 10.96 10^3/uL (4.4-10.8) H 08/05/21 08:55 08/05/21 Red Blood Count 4.05 10^6/uL (3.93-5.22) 08/05/21 08:55 08/05/21 Hemoglobin 11.1 g/dL (11.2-15.7) L 08/05/21 08:55 08/05/21 Hematocrit 33.9 % (36.0-46.0) L 08/05/21 08:55 08/05/21 Platelet Count 217 10^3/uL (130-400) 08/05/21 08:55 08/05/21 Complete Metabolic Panel: No Data to Display Liver Function Panel: No Data to Display Coagulation Panel: No Data to Display Cardiac Panel: No Data to Display Arterial Blood Gas: No Data to Display Venous Blood Gas: No Data to Display Pancreas Panel: No Data to Display Thyroid Panel: No Data to Display Infectious Disease: Coronavirus (COVID-19)(PCR) Negative (Negative) 08/05/21 09:00 08/05/21 Coronavirus 2019 Source Nasal/Nares 08/05/21 09:00 08/05/21 Blood Cultures: No Data to Display Toxicology Panel: Urine Amphetamines Screen Negative (Negative) 07/08/21 09:50 07/08/21 Urine Benzodiazepines Screen Negative (Negative) 07/08/21 09:50 07/08/21 Urine Barbiturates Screen Negative (Negative) 07/08/21 09:50 07/08/21 Urine Cocaine Screen Negative (Negative) 07/08/21 09:50 07/08/21 Urine Methadone Screen Negative (Negative) 07/08/21 09:50 07/08/21 Urine Opiates Screen Negative (Negative) 07/08/21 09:50 07/08/21 Ur Tricyclic Antidepressants Screen Negative (Negative) 07/08/21 09:50 07/08/21 Ur Tetrahydrocannabinol (THC) Scrn Negative (Negative) 07/08/21 09:50 07/08/21 Panel: No Data to Display Imaging and Studies Imaging and Studies Study information below may be from another EMR and interpreted by another provider. Please see original notes in EMR for more complete details. EKG Summary: 2020: sinus rhythm, low voltage. Anesthesia Assessment and Plan Anesthesia History Personal History: No History of Anesthesia Complications Family History: No Family History of Anesthesia Complications Exercise Tolerance Exercise Tolerance: Metabolic Equivalents>4 Cardiac & Pulmonary Exam Cardiac Exam: Normal S1/S2 Heart Sounds Pulmonary Exam: Clear Bilateral Breath Sounds Implantable Cardiac Device Does patient have a Pacemaker or an ICD?: No Airway Exam Known Difficult Airway: No Mallampati Class: 2 Mouth Opening: Normal (> 3cm) Thyromental Distance: Greater than 3 cm Neck Range of Motion: Full ROM Neck Circumference: Normal Teeth Condition: Normal Dentition ASA Classification ASA Score: ASA 2 Emergency Case?: No NPO Status NPO Status: Full Stomach Status Status: Other Anesthesia Plan Resuscitation Status: Full Code Anesthesia Technique: Spinal Anesthesia (or epidural. ) Airway Planned: Natural Airway Monitors Used: Standard Monitors Preoperative Comments:: 31 yo female for TOLAC vs. c.section. Sig PMHx: asthma (occ albuterol), GERD this preg, anxiety. Previous Anes: c section in [place], had labor epidural placed which was a dense block from the start and it was used as the primary anesthetic it sounds like. She denies significant n/v during the section. Plan: we discussed epidural for analgesia and section, along with spinal for section also. We also discussed that she my need another IV for an operative delivery.
--- NOTE | 2021-08-06 10:07 | PGE_ITS ---
Date of service: 08/06/21 Time of Service: 10:07 Informed Consent Informed Consent: Risk,Benefits,Alternatives Discussed and Vaginal after (patient verbalizes she wants to continue with attempted . KH) Pelvic Exam Dilation: 3 Effacement (%): 60 station: -2 Cervix Position: posterior Consistency: soft Vaginal Exam Presentation: Vertex Pooling: Negative Contractions Monitor Mode: External Contraction Frequency(min): every 3-5 Contraction Duration(sec): 50-60 Intensity: Mild/Moderate Fetus A Monitor: External (US) Heart Rate Baseline: 130 Presentation: Vertex Variability: Moderate (6-25 BPM) Categories: Category I FHR Rhythm: Regular Accelerations: 15 X 15 Decelerations: Variable Recurrence: Episodic Amniotic Membrane Status: Other (indeterminant) Assessment Note: Strip viewed by Dr. Liu Assessment and Plan Assessment and plan (1) Spontaneous onset of labor: Status: Acute Assessment and plan: Coping well with contractions. Category 1 tracing. Comfort measures provided. Consultation with Dr. Liu re: patient's status. Dr. Liu spoke with Kvng and a plan made to offer AROM. I attempted AROM with some difficulty due to the posterior cervix. No evidence of pooling after attempt x 3. Will plan to assess for ROM and attempt AROM again in 2 hours. (2) Desires vaginal after trial: Status: Acute Assessment and plan: Kvng expressed a strong desire to attempt a vaginal at this time. Will re- asses in 2 hours. Objective Temp Pulse Resp BP 97.9 F 78 14 107/58 L 08/06/21 07:51 08/06/21 10:05 08/06/21 07:51 08/06/21 10:05 Subjective Interval history since last seen: Kvng has been having irregular contractions and experiencing fatigue. She
[2021-08-06] MEDS: Lactated Ringers 1,000 ML 150 ML IV (10:22)
--- NOTE | 2021-08-06 10:42 | W.OBCONSULT ---
Date of service: 08/06/21 Time of Service: 10:42 Assessment and Plan Assessment and plan (1) 41 weeks gestation of : Status: Acute Assessment and plan: I was present for the discussion with pt and her partner by Brianna Orellana. Attempt at AROM not successful. Pt's Vertex -2 station per CNM exam. FHR ocassional variables assoc with contractions. Pt desires to continue to labor. We will follow SVE closely. If possible to have AROM assess contractions with IUPC. (2) Desires vaginal after trial: Status: Acute Assessment and plan: OR team and anesthesia providers aware of presence of DOREEN occurring on . (3) Spontaneous onset of labor: Status: Acute History of Present Illness History of Present Illness Chief Complaint: Pt desires DOREEN. Contractions since 0200 08/06/21 Narrative: Pt is a 31yo female currently 41w0d EGA by a LMP of 10/23/20 who was admitted to after onset of painful regular contractions beginning earlier this morning. Pt has been followed by the CNM service during this . Unremarkable course. She was counseled by MD provider regarding risks and benefits of DOREEN. On arrival at [facility] 375/-3 station. Contractions irreg. Mod to palpation. FHR ocassional variable contraction. She strongly desires a DOREEN> Consults Consult date: 08/06/21 Requesting physician: Noelle Liu Review of Systems Narrative: Tired. Feeling contractions. Otherwise unremarkable. Genitourinary Genitourinary: Reports other (No SROM.) [facility] All Active Problems (Updated 08/06/21 @ 10:14 by Aimee Orellana CNM) Spontaneous onset of labor (Acute) 41 weeks gestation of (Acute) Elevated glucose (Acute) Size of fetus inconsistent with dates in third trimester (Acute) Fatigue (Acute) Desires vaginal after trial (Acute) (Acute) Anxiety (Chronic) Medical History Asthma never intubated Breast abscess of female left breast related to mastitis Heart palpitations Migraine Shortness of breath at rest Surgical History History of appendectomy History of incision and drainage Previous section Family History Father Asthma Diabetes type II Hyperlipidemia Hypertension Self Asthma Paternal Uncle Cancer age 52 from colon cancer Mother Depression Diabetes Brother Autism Social History Smoking/Tobacco Use Status: Never Second Hand Exposure: No Smoking risk assessment performed?: Yes Alcohol Intake: never Drug use: Never Substance use type: does not use 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 Date GA/Weeks # Outcome Route Wgt Sex Labor Lgth Anesthesia Location Prov Complic 07/10/16 41 No Successful 8 lb 4 oz Female 23 hr regional Delivery Date: 07/10/16 Last Updated by: Aimee Cook CNM delivererd at [facility], fully and pushing after induction Exam Const Nutritional Appearance: obese Orientation: alert, awake and oriented x3 Resp Effort & Inspection: normal respiratory effort Manual OB Exam: dilated 3 (dilation unchanged from early SVE.) Amniotic Fluid: other (attempt at AROM by Brianna Orellana CNM unsuccessful.) Psych Appearance: grossly normal Mental Status: mental status grossly normal Mood: congruent mood Affect: normal affect Results Last Vital Signs Temp 97.9 F 08/06/21 10:05 Pulse 82 08/06/21 10:41 Resp 14 08/06/21 10:05 BP 107/58 L 08/06/21 10:05
--- NOTE | 2021-08-06 16:59 | W.PM.OBNL1 ---
Date of service: 08/06/21 Time of Service: 13:30 Informed Consent Informed Consent: Risk,Benefits,Alternatives Discussed and Vaginal after (patient verbalizes she wants to continue with attempted . KIANNA) Pelvic Exam Dilation: 4 Effacement (%): 60 station: -1 Cervix Position: posterior Consistency: soft Vaginal Exam Presentation: Vertex Pooling: Positive Contractions Monitor Mode: External Contraction Frequency(min): every 3 Contraction Duration(sec): 60 Intensity: Moderate/Strong Fetus A Monitor: External (US) Heart Rate Baseline: 130 Presentation: Vertex Variability: Moderate (6-25 BPM) Categories: Category I FHR Rhythm: Regular Accelerations: 15 X 15 Decelerations: None Assessment and Plan Assessment and plan (1) Spontaneous onset of labor: Status: Acute Assessment and plan: Coping well with contractions. SVE performed and cervix 4 cms. AROM performed for small amount of clear fluid. Category 1 tracing. Comfort measures provided. Anticipate . Dr. Mukherjee was notified of patient's progress. Objective Temp Pulse Resp BP 97.9 F 92 H 12 111/60 08/06/21 16:05 08/06/21 16:57 08/06/21 14:51 08/06/21 16:05
--- NOTE | 2021-08-06 17:04 | W.PM.OBNL1 ---
Date of service: 08/06/21 Time of Service: 17:04 Informed Consent Informed Consent: Risk,Benefits,Alternatives Discussed (epidural for pain relief) Pelvic Exam Dilation: 5 Effacement (%): 80 station: -1 Cervix Position: posterior Consistency: soft Vaginal Exam Presentation: Vertex Pooling: Positive Contractions Monitor Mode: External Contraction Frequency(min): every 3 Contraction Duration(sec): 60 Intensity: Moderate/Strong Fetus A Monitor: External (US) Heart Rate Baseline: 130 Presentation: Vertex Variability: Moderate (6-25 BPM) Categories: Category I FHR Rhythm: Regular Accelerations: 15 X 15 Decelerations: None Assessment and Plan Assessment and plan (1) Spontaneous onset of labor: Status: Acute Assessment and plan: Her cervix was 5 cms after using the tub. She has used several positions for labor comfort. She requests to have an epidural and the CONTROL ANALYST automation qa lead was paged. IV fluids infusing. Objective Temp Pulse Resp BP 97.9 F 91 H 12 111/60 08/06/21 16:05 08/06/21 17:01 08/06/21 14:51 08/06/21 16:05 Subjective Interval history since last seen: Kvng used the shower for comfort with excellent effect. Her contractions were reported to be much stronger after the shower and she requested to use nitrous oxide which she di use with limited effect. .
[2021-08-06] MEDS: FentaNYL/ROPIvacaine 2 mcg/ml and 0.1% 200 ML CADD Cassette EP (17:45)
--- NOTE | 2021-08-06 17:59 | W.ANESNEU ---
Epidural/Spinal Catheter Date Performed: 08/06/21 Procedure Start: 17:26 Procedure Stop: 17:45 Requesting Provider: Aimee Orellana Procedure Location: Obstetrics Reason Performed: Labor Epidural Standard Monitors Applied: Blood Pressure and SpO2 Patient Position: Sitting Sedation Given (Indicate Dose Given): No Sedation given Patient Mental Status: Awake Sterility: Hand Hygiene, Surgical Cap, Surgical Mask, Sterile Gloves, Sterile Drape/Sheet and Chlorhexidine Procedure Location: L3-L4 Interspace Epidural Needle: Tuohy 17 Guage Needle Length: 3.5 Inch Needle Approach: Midline Epidural Procedure: Skin Prepped, Sterile Drape Placed, 1% Lidocaine to skin and subcutaneous tissue with 25G needle, Tuohy Needle placed, ELLY to Saline Used and Epidural Catheter Placed (wire reinforced. ) Catheter Placed?: Catheter Placed Test Dose (Indicate Dose Given): 3ml 1.5% Lidocaine with 1:200K Epinephrine Given Loss of Resistance Depth (cm): 5 Catheter depth at skin (cm): 12 Dressing: Sorbaview Dressing Placed, Tegaderm Applied and Mastisol Used Epidural Provider Bolus (Indicate Dose Given): Total Ropivacaine 0.1% with Fentanyl 2mcg/ml Given from pump. (ml) Dose:: 8 mL Additives (Indicate Dose Given ): None Infusion Medication: Medication Infusion Began Medication Infusion: Ropivacaine 0.1% with Fentanyl 2mcg/ml Maintenance Infusion Rate (ml/hour): 10 PCEA Bolus Dose (ml): 5 Block Level: N/A Paresthesia: None Ultrasound: Not Used Number of Attempts (See previous attempts in note section): 1 Procedure Tolerated: No Complications Procedure Outcome: Successful Procedure Comment:: 8 mL bolus off pump with good effect. Slightly more dense on right. Discussed positioning, PCEA, and pulling back cath if needed. Performed By: Micha Hathaway
--- NOTE | 2021-08-06 18:30 | W.PM.OBNL1 ---
Date of service: 08/06/21 Time of Service: 18:31 Informed Consent Informed Consent: Risk,Benefits,Alternatives Discussed (epidural for pain relief) Pelvic Exam Dilation: 5 Effacement (%): 90 station: -2 Position: ROP Cervix Position: posterior Consistency: soft Vaginal Exam Presentation: Vertex Pooling: Positive Contractions Monitor Mode: External Contraction Frequency(min): 3 Contraction Duration(sec): 60 Intensity: Moderate/Strong Fetus A Monitor: External (US) Heart Rate Baseline: 130 Presentation: Vertex Variability: Moderate (6-25 BPM) Categories: Category I FHR Rhythm: Regular Accelerations: 15 X 15 Decelerations: Variable Recurrence: Episodic Assessment and Plan Assessment and plan (1) Spontaneous onset of labor: Status: Acute Assessment and plan: Rest is encourged. Kvng is attempting to void on a bedpan. Will insert atkins catheter if unable to void. Will plan to insert IUPC for monitoring off the contraction strength Objective Temp Pulse Resp BP Pulse Ox 98.1 F 97 H 12 109/64 97 08/06/21 17:58 08/06/21 18:30 08/06/21 17:58 08/06/21 18:30 08/06/21 17:55 Subjective Interval history since last seen: Kvng received an epidural with excellent effect. She is resting in bed. She has an urge to void.
--- NOTE | 2021-08-06 20:34 | PGE_ITS ---
Date of service: 08/06/21 Time of Service: 20:34 Informed Consent Informed Consent: Risk,Benefits,Alternatives Discussed (epidural for pain relief) Pelvic Exam Dilation: 6 Effacement (%): 100 station: -1 Position: OP Cervix Position: posterior Consistency: soft Pooling: Positive Contractions Monitor Mode: External Contraction Frequency(min): every 3-4 minutes Contraction Duration(sec): 60 Intensity: Mild/Moderate IUPC resting tone (mmHg): 20 IUPC peak pressure (mmHg): 45 IUPC [place] units: 52 Fetus A Monitor: External (US) Heart Rate Baseline: 140 Presentation: Vertex Variability: Moderate (6-25 BPM) Categories: Category I FHR Rhythm: Regular Accelerations: 15 X 15 Decelerations: Variable Recurrence: Episodic Assessment and Plan Assessment and plan (1) Failure to progress in labor: Status: Acute Assessment and plan: I discussed with Kvng the limited descent of the baby's head and inadequate contraction strength. Dr. Liu was notified of Kvng's status and [place] units of 30-50. She discussed section with Kvng and her Russ due to failure to progress and they are in agreement with that plan at this time. Objective Temp Pulse Resp BP Pulse Ox 98.4 F 91 H 12 116/69 97 08/06/21 20:17 08/06/21 20:29 08/06/21 17:58 08/06/21 20:29 08/06/21 17:55 Subjective Interval history since last seen: Kvng has been napping. She awoke because she was cold. I placed an IUPC at 1830 and it is showing mild strength contractions. A atkins catheter is in place,
[2021-08-06] MEDS: Azithromycin 500 MG VIAL (20:50)
[2021-08-06] MEDS: AZITHROMYCIN 500 MG in Normal Saline 250 ML 250 MG IVPB (20:50)
[2021-08-06] MEDS: Sodium Citrate 30 ML CUP (20:56)
--- NOTE | 2021-08-06 20:59 | HPE_ITS ---
Date of service: 08/06/21 Time of Service: 20:59 Assessment and Plan Assessment and plan (1) Failure to progress in labor: Status: Acute (2) 41 weeks gestation of : Status: Acute OB-HPI Labor/Delivery History of Present Illness Reason for Visit: 41 week gestational age, previous LTCS, trial of l Chief Complaint: Uterine Contractions. MARTINA Calculator Estimated Delivery Date Method Current WG Current Estimate 07/30/21 LMP (Certain) 41w 0d Other Estimates 07/30/21 Ultrasound #1 41w 0d History of Present Expected Delivery Route/Plan hopes for - CNM FOB/fiance - Russ Cordova (2nd child together) BB no circ GBS neg Russ (or his sister Katie if he's away) & Kvng's mother, Mayte for support. Would like to try the tub if possible. Does not plan [place]OL at [facility] if postdate, will opt for repeat C/S instead Specific Issues/Plan 1. Prev LTC/S 4 yrs ago in [place], interested in TOLAC 1a. review records/op note. Double uterine closure confirmed, OP note on pg's 80-81 scanned records 1b. MD appt at 30 wks for consent process: done via telehealth visit 06/03/21 2. BMI 32, early glucola: 125 3. Asthma, using inhalers 4. [place] result: low prob x3, male fetus 5. Inadequate heart views on anatomy scan- rescheduled for additional views- completed and WNL 6. Referral to cardiology due to fatigue, dizziness, palpitations and shortness of breath at rest. 6a. EKG showed sinus rhythm. No additional monitoring indicated. 7. Both Kvng and Russ have received the Covid vaccine, they both decline the booster 8. 29 wk glucola @ 175; 3 hr GTT- will try to schedule 06/10 9a. 3 hr, 86/162/161/136 9. COVID + 05/31/21 associated with tachycardia. ED visit 05/31/21. Recieved MAB at [facility] 10a. US for growth 06/17, 2946 G, 34% nl HONG 14.9 10b. testing at 36 weeks - starting 07/08. Narrative: Patient has experienced labor contractions and maximum cervical dilatation 6 cm with epidural in place for labor analgesia. However based on her labor curve and IUPC showing an adequate labor contractions decision has been made to not continue the trial of labor and to proceed with a repeat delivery. I explained to Kvng and her partner Russ that augmentation would not in my might be appropriate based on her labor pattern. They are both agreeable to proceed with a delivery. Informed Consent Informed Consent: Section Delivery Review of Systems Gastrointestinal Gastrointestinal: Reports abdominal pain (Associated with contractions.) Genitourinary Genitourinary: Reports other (Treviño catheter to gravity drainage with clear timothy urine) Musculoskeletal Comments: Patient has been in bed C epidural was placed Psychiatric Comments: While disappointed that she was unable to have a trial of labor she understands the reasoning behind proceeding with a repeat delivery and has given informed consent [facility] All Active Problems (Updated 08/06/21 @ 20:56 by Aimee Orellana CNM) Failure to progress in labor (Acute) Spontaneous onset of labor (Acute) 41 weeks gestation of (Acute) Elevated glucose (Acute) Size of fetus inconsistent with dates in third trimester (Acute) Fatigue (Acute) Desires vaginal after trial (Acute) (Acute) Anxiety (Chronic) Medical History Asthma never intubated Breast abscess of female left breast related to mastitis Heart palpitations Migraine Shortness of breath at rest Surgical History History of appendectomy History of incision and drainage Previous section Family History Father Asthma Diabetes type II Hyperlipidemia Hypertension Self Asthma Paternal Uncle Cancer age 52 from colon cancer Mother Depression Diabetes Brother Autism Social History Smoking/Tobacco Use Status: Never Second Hand Exposure: No Smoking risk assessment performed?: Yes Alcohol Intake: never Drug use: Never Substance use type: does not use 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 Date GA/Weeks # Outcome Route Wgt Sex Labor Lgth Anesthes ia Location Prov Complic 07/10/16 41 No Successful 8 lb 4 oz Female 23 hr regional Delivery Date: 07/10/16 Last Updated by: Aimee Cook CNM delivererd at [facility], fully and pushing after induction Meds Allergies and Home Medications Allergies Allergy/AdvReac Type Severity Reaction Status Date / Time grass pollen-perennial rye, Allergy Intermediate wheezing, Verified 08/06/21 05:48 standar sneezing, runny nose cat dander Allergy Mild runny Verified 08/06/21 05:48 nose, itchy eyes mold Allergy Mild sneezing, Verified 08/06/21 05:48 stuffy nose ondansetron AdvReac Severe severe Verified 08/06/21 05:48 headache Home Medications Medication Instructions Recorded Confirmed Type albuterol sulfate 90 mcg/actuation 2 puff INHALATION Q6H PRN 12/23/20 08/06/21 History aerosol inhaler prenat.vits,jody,[id number]-[id number] 1 tab PO DAILY 12/23/20 08/06/21 History Exam Physical Exam Vital signs: Temp Pulse Resp BP Pulse Ox 98.4 F 103 H 12 120/71 97 08/06/21 20:17 08/06/21 20:44 08/06/21 17:58 08/06/21 20:44 08/06/21 17:55 Vital Signs Reviewed: Yes Constitutional Constitutional: no acute distress Detailed Labor and Delivery Exam Dilation: 6 Effacement (%): 75 station: -1 Position: OP Cervix position: mid Consistency: soft Hernandez Score: Cervical Points Exam 0 1 2 3 Dilation Closed 1-2cm 3-4 cm 5-6cm Effacement 0-30% 40-50% 60-70% 80% Consistency Firm Medium Soft Station -3 -2 -1,0 +1,+2 Position Posterior Mid Anterior HERNANDEZ Score(Cervical Ripeness Score): 11 Amniotic Membrane Status: Ruptured Rupture Method: Artifical Amniotic Fluid: Clear Contraction Frequency(min): Every 6 Contraction Duration(sec): 45 Contraction Intensity: Mild/Moderate IUPC [place] units: 30 Fetus A Heart Rate Baseline: 150 Monitor Accelerations: 15 X 15 Monitor Decelerations: None Variability: Moderate (6-25 BPM) Presentation: Cephalic Categories: Category I Est. Weight: 8 lb 13.096 oz Date of Membrane Rupture: 08/06/21 Time of Membrane Rupture: 12:46 HEENT Exam HEENT Exam: Normal Neck Exam Neck Exam: Normal Chest/Brest/Axilla Exam Chest Exam: Not Done Breast Exam Breast Exam: Not Done Respiratory Exam Respiratory Exam: Normal Cardiovascular Exam Cardiovascular Exam: Normal Abdominal Exam Abdominal Exam: Normal Rectal Exam Rectal Exam: Not Done Exam Exam: Normal (Vaginal exams performed by Jose Orellana CNM) Extremities Exam Extremities Exam: Normal Back/Spine/Pelvis Exam Back Exam: Normal Pelvis Adequate: No Skin Exam Skin Exam: Normal Neurological Exam Neurological Exam: Normal (Reflexes decreased secondary to effect of epidural) Psychiatric Exam Psychiatric Exam: Normal Results Results Group Beta Strep: Negative Blood Type: A+ Rubella Status: Immune Varicella Immunity: Immune Risk Assessment Risk for Shoulder Dystocia Historical/Initial OB: POSITIVE FOR: Pre- BMI>30; NEGATIVE FOR: Pelvic Abnormality, Previous Shoulder Dystocia or Previous Macrosomia Delivery Plan @ 36wks: spont labor for TOLAC Delivery Plan @ 40 wks: spontaneous labor by 41 weeks or will have repeat C/S. Early labor at 41 weeks occurred, will monitor for labor progression, some increased risk of shoulder dystocia due to history of being 10 cm and pushing without adequate descent leading to section in last . Risk for Pre-Eclampsia Date Initiated/Initials: not indicated Yes, if one or more: NEGATIVE FOR: Hx Pre-E/Gest HTN, Chronic HTN, Multiple Gestation, Pre-gestational DM, Renal Disease, Systemic Lupus or APA Syndrome Yes, if 2 or more: POSITIVE FOR: BMI>30; NEGATIVE FOR: Nulliparity, Age>= 35 yrs, >10yr btwn pregnancies, ethinicty, Mother/Sister w/ Pre-E or Previous IUGR Risk for Post- Hemorrhage Initial: NEGATIVE FOR: Multiple Gestation, Previous PPH, Known Clotting Deficiency, Grand Multiparity or Anticoagulation Date/Initials: 08/06/21: Risks Reviewed Risks Reviewed Upon Admission: Yes
[2021-08-06] MEDS: Lactated Ringers 1,000 ML 200 ML IV (21:28)
[2021-08-06] MEDS: Bupivacaine 0.25% Pres-Free 30 ML VIAL (21:28)
[2021-08-06] MEDS: ceFAZolin 2 GM/50 ML BAG IVPB (21:28)
--- NOTE | 2021-08-06 23:13 | ROE_ITS ---
Date of service: 08/06/21 Time of Service: 23:13 Operative Note Operative Note DATE OF PROCEDURE: 08/06/21 PRE-OP DIAGNOSIS: Attempted trial of labor after delivery. Arrest of cervical dilatation PROCEDURE: Repeat unscheduled low transverse delivery SURGEON: Noelle Liu CAROUSEL OPERATOR: Aimee Orellana ANESTHESIA TYPE: General LMA/ETT (Epidural converted to a general endotracheal anesthesia) and Epidural Refer to Anesthesia Record ESTIMATED BLOOD LOSS: 600 PATHOLOGY: none sent COMPLICATIONS: None Patient was transported to: PACU Patient's condition: stable Indications: 31yo ? female currently 41w0d EGA by a LMP of 10/23/20 who was admitted to with regular contractions beginning earlier on the morning of admission.. Pt has been followed by the CNM service during this . Unremarkable course. She was counseled by MD provider regarding risks and benefits of DOREEN. On arrival at ? VE 375/-3 station. After 12 hours of contractions maximum cervical dilation 6cm with regular contractions. presenting part -1 in pelvis. Decision made not to augment labor and proceed with repeat LTCS. Findings: Viable male in the OP presentation. His parents plan to name him Feng. Clear amniotic fluid. weight: 4550gms. Apgars: 8/9. Normal uterus, and adnexa. Normal placenta. Procedure Description: Patient was taken to the operating room where she was placed in the dorsal supine position with a leftward tilt. SCDs and a Treviño catheter to gravity drainage were in place. A vaginal prep with Betadine was performed and the patient was prepped and draped in the usual sterile fashion.Surgical timeout was performed. She received both Azithromycin and Cefazolin preoperatively. After a adequate level of anesthesia was achieved a Pfannenstiel skin incision was made approximately 2 cm superior to the pubic symphysis using a scalpel and the underlying subcutaneous tissue dissected using Bovie electrocautery to the level of the rectus fascia. The rectus fascia was then nicked in the midline and the fascial incision extended laterally using curved Thao scissors. 2 Ruperto clamps were applied to the inferior rectus fascia and the rectus fascia was dissected off of the underlying rectus muscles using Bovie electrocautery and blunt technique. A similar technique was carried out on the superior rectus fascia. Rectus muscles were then in the midline and the peritoneum en tered bluntly. Immediately prior to the peritoneum being extended laterally the patient reported pain at the operative sight. Additional dosing of epidural was attempted but pt remained acutely aware of any touch to the surface of the uterus. The decision was made to perform the remainder of the procedure under general endotracheal anesthesia. Once the pt was anesthetized the vesicle-uterine peritoneum over lower uterine segment was incised with curved Thao scissors and the bladder flap created bluntly. Scalpel was used to incise the lower uterine segment in a transverse fashion. The uterine incision was extended bluntly and the amniotic sac was ruptured with clear amniotic fluid noted. A single gloved hand was placed into the uterine cavity and the head was successfully delivered through the uterine incision followed by the trunk and extremities with the assistance of fundal pressure. The cord was doubly clamped and cut and the handed off to the waiting pediatric team. Cord blood was obtained and the placenta was extracted with a combination of fundal massage and gentle cord traction. The uterus was exteriorized cleared of all clots and debris and the uterine incision reapproximated with a running lock suture of 0 Vicryl followed by a second imbricating suture of 0 Vicryl. Uterine incision was noted be hemostatic. The uterus was returned to the abdomen and the paracolic gutters cleared of all clots and debris. Uterine incision and the along with the bladder flap and the abdominal wall were all inspected and noted to be hemostatic. Peritoneum was reapproximated with a running suture of 2-0 Vicryl. The rectus fascia was reapproximated with a running suture of 0 Vicryl. space within the subcutaneous tissue closed with a running suture of 2-0 Vicryl. The skin incision was reapproximated with a subcuticular closure of 4-0 Vicryl. Skin incision is and sealed with skin glue. The uterus was massaged for any remaining clots and debris's. The patient was transported to recovery area in stable condition. All sponge, lap, and needle counts correct x2.
--- NOTE | 2021-08-06 23:28 | W.ANESPOSTOP ---
Postoperative Evaluation Date, Time and Location Date Performed: 08/06/21 Time Performed: 23:28 Patient Location: Obstetrics Vital Signs Most Recent Imported Vital Signs: Most Recent Vital Signs Temp Pulse Resp BP Pulse Ox 36.3 C L 118 H 22 105/57 L 97 08/06/21 23:10 08/06/21 23:10 08/06/21 23:10 08/06/21 23:10 08/06/21 23:10 Pain Score Most Recent Pain Score: Most Recent Pain Score Pain Level 6 08/06/21 05:47 Assessment Mental Status: Awake (Alert & Oriented to Patient Baseline) Airway and Respiratory Function: Patent airway with normal (patient baseline) respiratory exam Cardiovascular Function: Hemodynamically Stable Hydration Status: Adequately Hydrated Nausea & Vomiting: No Nausea or Vomiting Pain: Pain is tolerable per patient Peripheral Nerve Block: Patient did not receive a nerve block
[2021-08-07] VITALS (9 sets, daily range): BP systolic 91–106; BP diastolic 57–66; PULSE 95–122; RESP 16; TEMP 36.5–37.2; O2SAT 93–97
[2021-08-07] MEDS: oxyCODONE 5 mg/Acetaminophen 325 mg TAB PO ×4 (00:54→22:09)
[2021-08-07] MEDS: Ketorolac 30 MG/ML VIAL IVP ×3 (06:05→18:19)
[2021-08-07 07:49] LABS: Abs Immature Grans 0.11 10^3/uL (0.0-0.06); Absolute Basophil Count 0.03 10^3/uL (0.0-0.2); Absolute Eosinophil Count 0.07 10^3/uL (0.0-0.7); Absolute Lymphocyte Count 1.48 10^3/uL (1.2-3.4); Absolute Monocyte Count 0.92 10^3/uL (0.1-0.8); Absolute Neutrophil Count 8.84 10^3/uL (1.2-6.7); Basophils % 0.3; Eosinophils % 0.6; HCT 27.6 % (36.0-46.0); HGB 9.1 g/dL (11.2-15.7); Lymphocytes % 12.9; MCH 27.6 pg (27.0-33.0); MCV 83.6 fL (80-95); MPV 9.7 fL (8.0-11.0); Neutrophils % 77.2; Nucleated RBC 0 %; Platelet Count 195 10^3/uL (130-400); RDW 13.7 % (11.7-14.6); WBC 11.45 10^3/uL (4.4-10.8)
[2021-08-07] MEDS: Acetaminophen 325 MG TAB 650 MG PO ×2 (12:09→16:41)
[2021-08-07] MEDS: Prenatal Multivitamin w/CA,FE TAB 1 TAB PO (12:09)
--- NOTE | 2021-08-07 13:00 | W.PM.OBPNV1 ---
Date of service: 08/07/21 Time of Service: 13:00 Assessment and Plan Assessment and plan (1) Failure to progress in labor: Status: Acute Assessment and plan: We will continue to support patient with activities of daily living. Discussed discharged home at a time that is convenient for her. Treviño catheter will be removed this morning and she will be encouraged to be out of bed as needed. (2) Encounter for maternal care for low transverse scar from repeat delivery: Status: Acute Assessment and plan: Reviewed events of delivery briefly reviewed with patient this morning. (3) Normal breast feeding: Status: Acute Assessment and plan: S reading counselor will assist. Subjective Subjective Interval history: Postop day 1 from a repeat low transverse delivery after a unsuccessful trial of labor on 08/06/2021. Patient achieved a maximum cervical dilatation of 6 cm with the -1 vertex presentation. She required general endotracheal anesthesia to augment epidural anesthesia which proved insufficient. Postop course has been uncomplicated she has been successfully breast-feeding her infant. Patient comments: Incisional pain and Tolerating diet Patient's Mood: Tired, saddened about repeat and requiring intubation during . baby status: Doing well, Nursing well and Rooming in feeding status: Exclusively breast feeding Narrative: I recommended that she continue with Toradol for maximum 4 doses IV. Exam Physical Exam Vital signs: Temp Pulse Resp BP Pulse Ox 98.4 F 104 H 16 99/65 L 96 08/07/21 07:30 08/07/21 07:30 08/07/21 07:30 08/07/21 07:30 08/07/21 03:00 Vital Signs Reviewed: Yes Constitutional Constitutional: no acute distress Respiratory Exam Respiratory Exam: Normal Cardiovascular Exam Cardiovascular Exam: Normal Abdominal Exam Abdomen: Tender and Other (Incision clean dry and intact. Skin glue covering incision) Fundal Exam Fundus: Below Umbilicus and Firm Rectal Exam Rectal Exam: Not Done Extremities Exam Extremity Exam: Normal Skin Exam Skin Exam: Normal Psychiatric Exam Psychiatric Exam: Normal (Her mood is appropriate considering the circumstances. Adequate bonding with infant.) Results Hemoglobin/Hematocrit: Hgb 9.1 g/dL (11.2-15.7) L 08/07/21 07:36 Hct 27.6 % (36.0-46.0) L 08/07/21 07:36 Abnormal Lab Findings: Abnormal Labs 08/07/21 07:36 WBC 11.45 H RBC 3.30 L Hgb 9.1 L Hct 27.6 L Absolute Neutrophils 8.84 H Absolute Monocytes 0.92 H
[2021-08-07] MEDS: Docusate Sodium 100 MG CAP PO (16:41)
[2021-08-07] MEDS: Normal Saline Flush 10 ML SYR IVP (18:19)
[2021-08-08] MEDS: oxyCODONE 5 mg/Acetaminophen 325 mg TAB PO ×2 (04:08→12:43)
--- NOTE | 2021-08-08 08:01 | W.PM.DS.N ---
Date of service: 08/08/21 Time of Service: 08:01 DS: Diagnosis Discharge Diagnosis (1) Failure to progress in labor: Start date: 08/08/21 Start time: 08:02 Status: Acute (2) Encounter for maternal care for low transverse scar from repeat delivery: Status: Acute (3) Normal breast feeding: Status: Acute Discharge Plan Disposition Patient Disposition: HOME Condition: Improving Discharge Details Reason For Visit: 41 week gestational age, previous LTCS, trial of l Admit Date/Time: 08/06/21 21:11 Admit Provider: Aimee Cook Attending Provider: Noelle Liu Primary Care Provider: Jolene Guerrero Hospital Course Hospital Course: 31yo ? female admitted at 41w0d EGA on 08/06/21 with regular contractions beginning earlier on the morning of admission. Pt desired a DOREEN and . On arrival at ? VE 3/75/-3 station. After 12 hours of contractions maximum cervical dilation 6cm with regular contractions. presenting part -1 in pelvis. Patient was counseled and agreed to have repeat LTCS secondary to arrest of cervical dilation. Postop course was uncomplicated she was discharged home successfully breast-feeding. She will have both ibuprofen and Percocet for pain relief. The plan is to have her follow-up in 2 weeks for assessment of incision with Dr. Liu and in 6 weeks with the CNM service. Home Meds and New Rx's Prescriptions: No Action prenat.vits,jody,hvp-aspi-grsgd Tablet 1 tab PO DAILY 0RF albuterol sulfate 90 mcg/actuation HFA aerosol inhaler 2 puff inhalation Q6H [id number] Discharge Instructions Stand Alone Forms: BC Instructions, Discharge Instruc Activity:: Activity as Tolerated Equipment/Supplies:: No Equipment Needed Diet:: As Tolerated Discharge Orders Discharge Orders: Discharge Order (Routine); Ordered 08/08/21 Ordered By: Noelle Liu DS: Summary Summary Time spent discussing smoking cessation with patient: 3 to 10 minutes Time Spent with Patient providing and/or coordinating discharge services: Less than 30 minutes Status at Discharge Functional status at discharge: independent ambulation Overall status at discharge: patient is progressing back to baseline Mental Status: mental status grossly normal Speech and Movement: speech and movement normal Mood: congruent mood Affect: normal affect Exam Narrative Exam Narrative: Postop day 2 after repeat low transverse delivery on 08/06/2021 after a arrest of labor during a trial of labor. Patient has expressed desire to be discharged home today. Const General: no acute distress (uncomfortable when ambulating) Resp Effort & Inspection: normal respiratory effort GI Inspection: incision (clean dry intact skin glue intact.) Palpation: tender (diffusely) General: deferred Skin General skin exam: no rashes or lesions noted Extrem General: no clubbing, cyanosis or edema Psych Appearance: grossly normal Mental Status: mental status grossly normal Speech and Movement: speech and movement normal Mood: congruent mood Affect: normal affect Attitude: cooperative Thought Process: normal Thought Content: normal Insight: insight good Judgment: judgment good DS: Data Vitals/I&O Vitals and I&O: Vital Signs Temperature 97.7 F 08/07/21 19:37 Temperature Source Oral 08/06/21 23:15 Pulse 101 H 08/07/21 19:37 Pulse Rhythm Regular 08/07/21 16:20 Respiratory Rate 16 08/07/21 19:37 Respiratory Depth Normal 08/06/21 20:00 Blood Pressure 97/60 L 08/07/21 19:37 Blood Pressure Mean 72 08/07/21 19:37 Pulse Oximetry 97 08/07/21 16:20 Oxygen Delivery Method Room Air 08/06/21 23:29 Oxygen Flow Rate 0 08/06/21 23:29 Pain Level 7 08/08/21 04:08 Intake & Output 08/07/21 08/07/21 08/08/21 11:59 23:59 11:59 Output Total 600 / 2050 1450 / 2050 350 / 350 Balance -600 / -2050 -1450 / -2050 -350 / -350 Output: Urine 600 / 2050 1450 / 2050 350 / 350 Other: Urine Color Yellow Yellow Urine Appearance Clear Comment Patient voided but had taken hat out, so not measured PFSH All Active Problems (Updated 08/07/21 @ 13:06 by Noelle Liu MD) Normal breast feeding (Acute) Encounter for maternal care for low transverse scar from repeat delivery (Acute) Failure to progress in labor (Acute) Spontaneous onset of labor (Acute) 41 weeks gestation of (Acute) Elevated glucose (Acute) Size of fetus inconsistent with dates in third trimester (Acute) Fatigue (Acute) Desires vaginal after trial (Acute) (Acute) Anxiety (Chronic) Medical History Asthma never intubated Breast abscess of female left breast related to mastitis Heart palpitations Migraine Shortness of breath at rest Surgical History History of appendectomy History of incision and drainage Previous section Family History Father Asthma Diabetes type II Hyperlipidemia Hypertension Self Asthma Paternal Uncle Cancer age 52 from colon cancer Mother Depression Diabetes Brother Autism Social History (Updated 08/08/21 @ 08:06 by Noelle Liu MD) Smoking/Tobacco Use Status: Never Second Hand Exposure: No Smoking risk assessment performed?: Yes Alcohol Intake: never Drug use: Never Substance use type: does not use Household members: family and other Details: H-Russ, D-ashley, S-Zain Number of Children: 2 Education Level: vocational 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 Date GA/Weeks # Outcome Route Wgt Sex Labor Lgth Anesthesia Location Prov [facility] 07/10/16 41 No Successful 8 lb 4 oz Female 23 hr regional 08/06/21 41 No Successful 10 lb 0.497 oz Male 12 hours AOC/Jose CABALLERO Delivery Date: 07/10/16 Last Updated by: Noelle Liu M.D. delivererd at [facility], fully and pushing after induction 'Ashley'. Delivery Date: 08/06/21 Last Updated by: Noelle Liu M.D. ' Zain'. Rest of descent during DOREEN. Epidural initially adequate during surgery but required general anesthesia to complete the
[2021-08-08] MEDS: Ibuprofen 600 MG TAB PO (08:35)
[2021-08-08] MEDS: Prenatal Multivitamin w/CA,FE TAB 1 TAB PO (08:36)
[2021-08-08] MEDS: Docusate Sodium 100 MG CAP PO (08:36)
[2021-08-08 08:45] VITALS: BP 101/66; PULSE 14; TEMP 36.8
== END 2021-08-08 13:45 | disposition home or self-care (01) | DRG 787 ==
PROVIDERS: Admitting Provider Obstetrics & Gynecology Gynecology; PCP Registered Nurse; Visit Provider Obstetrics & Gynecology Gynecology
PROC: 10D00Z1 Extraction of Products of Conception, Low, Open Approach (ICD-10-PCS; CPT 59514; principal; 2021-08-06 20:55)
DX: O99.354 Diseases of the nervous system complicating childbirth; Z37.0 Single live birth; O34.211 Maternal care for low transverse scar from previous cesarean delivery; Z3A.41 41 weeks gestation of pregnancy; O62.2 Other uterine inertia; O99.52 Diseases of the respiratory system complicating childbirth; O36.63X0 Maternal care for excessive fetal growth, third trimester, not applicable or unspecified; J45.909 Unspecified asthma, uncomplicated; G43.909 Migraine, unspecified, not intractable, without status migrainosus
CPT/HCPCS: 59620; 36415; 85025; J0171; J0456; J0690; J1885; J2370; J2704; J3010

== ENCOUNTER 2024-08-22 18:02 | Outpatient (REF) | payer OTHER, SELFPAY ==
--- NOTE | 2024-08-22 15:30 | PAPFT_PTH ---
PATIENT: Kvng Hernandez LOC: [facility] U#:[id number] AGE/SX: 34/F ROOM: RE08/22/[address]: Altagracia Cadet : 1990 BED: DIS: 08/22/2024 SPEC #: [id number] RECD: 08/22/24 18:09 STATUS: TIANA REDiomedes #: [id number] VIKAS: 08/22/24 15:[address]: Altagracia Cadet DEPT: [facility] Cytology RECD BY: Ximena Hernandez ENTERED: 08/22/24 18:10 SP TYPE: PAPFT OTHR DR: Jolene Guerrero Tissues: 1 - CX/ENDOCX FOR PAP SMEARS Procedures: PAP THIN PREP/UVM Screening HPV DNA PROBE Comments: [id number] (HPV 16 & 18/45)
== END 2024-08-22 18:03 | disposition home or self-care (01) ==
LOC: LBN 18:02
PROVIDERS: PCP Registered Nurse; Visit Provider Advanced Practice Midwife
DX: Z12.4 Encounter for screening for malignant neoplasm of cervix (principal); B37.9 Candidiasis, unspecified
CPT/HCPCS: 88142; 87624